=== PATIENT | female | born 1985 | race Asian ===

== ENCOUNTER 2017-01-17 09:49 | Inpatient (IN) | payer OTHER ==
[~2017-01-17] VITALS: Ht 167.6 cm; Wt 88.5 kg
[2017-01-17] MEDS ORDERED: LR 1,000 ML IV ONE ×2 (10:02→17:00)
[2017-01-17] MEDS ORDERED: CEFAZOLIN 2 GM IVPB PREMIX 50 ML IV ONE (10:15)
[2017-01-17 10:44] LABS: BILIRUBIN,URINE NEGATIVE (NEGATIVE); CLARITY/URINE CLEAR (CLEAR); COLOR,URINE YELLOW (YELLOW); GLUCOSE,URINE NEGATIVE (NEGATIVE); KETONES,URINE NEGATIVE (NEGATIVE); LEUKOCYTE ESTERASE ,URINE TRACE (NEGATIVE); NITRITE, URINE NEGATIVE (NEGATIVE); PROTEIN URINE 2+ (NEGATIVE); UROBILINOGEN,URINE 0.2 (0.2-1.0)
[2017-01-17 10:45] LABS: BLOOD, URINE TRACE (NEGATIVE)
[2017-01-17 10:54] LABS: HEMATOCRIT 44.3 % (36-48); HEMOGLOBIN 14.9 g/dL (12.0-16.0); MEAN CORPUSCULAR HEMOGLOBIN 33 pg (27-31); MEAN CORPUSCULAR HGB CONC 34 % (32-36); MEAN CORPUSCULAR VOLUME 98 fL (79.0-98.0); PLATELET COUNT (AUTO) 102 K/uL (130-430); RED BLOOD CELL COUNT(AUTO) 4.53 MIL/uL (4.2-6.2); WHITE BLOOD COUNT (AUTO) 7.8 K/uL (4.8-10.8)
[2017-01-17 10:57] LABS: BACTERIA,URINE MODERATE /HPF (None Seen); MUCUS,URINE None Seen /LPF (None Seen); RBC,URINE 0-3 /HPF (0-3)
[2017-01-17] MEDS ORDERED: NALOXONE HCL 1 MG in NACL 0.9% 1,000 ML IV PRN ×4 (11:04)
[2017-01-17] MEDS ORDERED: LR 1,000 ML IV SCH ×2 (11:04→12:56)
[2017-01-17 11:06] LABS: BASOPHILS % (MANUAL) 0 % (0-2); EOSINOPHILS % (MANUAL) 1 % (0-7); LYMPHOCYTES % (MANUAL) 38 % (20-46); MONOCYTES % (MANUAL) 7 % (0-11)
[2017-01-17] MEDS ORDERED: HYDROmorphone 2 MG/ML VIAL IVP PRN ×2 (11:15)
[2017-01-17] MEDS ORDERED: HYDROmorphone 1 MG INJ. 1 MG/ML AMPUL IVP PRN (11:15)
[2017-01-17] MEDS ORDERED: KETOROLAC TROMETHAMINE 60 MG/2 ML VIAL IM PRN (11:15)
[2017-01-17] MEDS ORDERED: DIPHENHYDRAMINE HCL 50 MG CAPSULE PO PRN (11:15)
[2017-01-17] MEDS ORDERED: ONDANSETRON HCL 4 MG/2 ML VIAL IVP PRN (11:15)
[2017-01-17] MEDS ORDERED: NALOXONE HCL 0.4 MG/ML AMP (NARCAN) IVP PRN ×3 (11:15)
[2017-01-17] MEDS ORDERED: DIPHENHYDRAMINE INJ 50 MG/ML VIAL IVP PRN (11:15)
[2017-01-17] MEDS ORDERED: MEPERIDINE HCL/PF 25 MG/ML DISP.SYRIN IVP PRN ×3 (11:15→18:15)
[2017-01-17] MEDS ORDERED: MORPHINE SULFATE 10MG/10ML PF AMP EP ONE (12:00)
[2017-01-17] MEDS ORDERED: LR 1,000 ML IV.SOLN IV ONE (12:00)
[2017-01-17] MEDS ORDERED: ONDANSETRON HCL 4 MG/2 ML VIAL IVP ONE (12:00)
[2017-01-17] MEDS ORDERED: NS IRRIG SOLN 1000 ML IR ONE (12:00)
[2017-01-17] MEDS ORDERED: OXYTOCIN 10 UNIT/ML VIAL IV ONE (12:00)
[2017-01-17] MEDS ORDERED: LANOLIN 7 GM OINT. TP PRN (13:00)
[2017-01-17] MEDS ORDERED: RHO(D) IMMUNE GLOBULIN/MALTOSE 1500 UNITS/1.3 ML (WINHRO) IM PRN (13:00)
[2017-01-17] MEDS ORDERED: BISACODYL 10 MG/SUPPOSITORY RC PRN (13:00)
[2017-01-17] MEDS ORDERED: MEPERIDINE HCL/PF 50 MG/ML AMP IVP PRN (13:00)
[2017-01-17] MEDS ORDERED: ANUSOL 1 EA SUPP.RECT (PREPARATION H) RC PRN (13:00)
[2017-01-17] MEDS ORDERED: MEASLES,MUMPS&RUBELLA VACC/PF 12500 UNIT/0.5 ML VIAL SUBQ PRN (13:00)
[2017-01-17 13:50] VITALS: BP_SYST 121
[2017-01-17] MEDS ORDERED: OXYTOCIN/NORMAL SALINE 1,000 ML IV ONE (16:12)
[2017-01-17 16:37] LABS: BASOPHILS # (AUTO) 0.1 K/uL (0.0-0.2); BASOPHILS % (AUTO) 0.8 % (0.0-2.0); EOSINOPHILS % (AUTO) 0.2 % (0.0-4.0); HEMATOCRIT 37.4 % (36-48); HEMOGLOBIN 12.8 g/dL (12.0-16.0); LYMPHOCYTES # (AUTO) 2.8 K/uL (1.0-5.5); LYMPHOCYTES % (AUTO) 24.2 % (20.5-51.5); MEAN CORPUSCULAR HEMOGLOBIN 33 pg (27-31); MEAN CORPUSCULAR HGB CONC 34 % (32-36); MEAN CORPUSCULAR VOLUME 97 fL (79.0-98.0); MONOCYTES # (AUTO) 0.5 K/uL (0.0-1.0); MONOCYTES % (AUTO) 4.7 % (1.7-9.3); NEUTROPHILS # (AUTO) 8.1 K/uL (1.8-7.7); NEUTROPHILS % (AUTO) 70.1 % (40.0-70.0); RED BLOOD CELL COUNT(AUTO) 3.86 MIL/uL (4.2-6.2); RED CELL DISTRIBUTION WIDTH 12.8 % (9.0-15.0); WHITE BLOOD COUNT (AUTO) 11.5 K/uL (4.8-10.8)
[2017-01-17] MEDS ORDERED: METHYLERGONOVINE MALEATE 0.2 MG/ML AMP IM ONE (17:00)
[2017-01-17 17:01] LABS: PLATELET COUNT (AUTO) 86 K/uL (130-430)
[2017-01-17] MEDS ORDERED: METHYLERGONOVINE MALEATE 0.2 MG/ML AMP ONE (17:03)
[2017-01-17 18:16] LABS: ALBUMIN 2.3 g/dL (3.4-4.8); CALCIUM 8.6 mg/dL (8.4-11.0); CREATININE 0.5 mg/dL (0.55-1.30); TOTAL BILIRUBIN 0.2 mg/dL (0.0-1.0); TOTAL PROTEIN, SERUM 5.3 g/dL (6.4-8.3); URIC ACID 6.7 mg/dL (2.4-7.0)
[2017-01-17] MEDS: CEFAZOLIN 1 GM IVPB PREMIX 50 ML IV SCH (18:32)
[2017-01-17] MEDS ORDERED: TEMAZEPAM 15 MG CAPSULE PO PRN (21:00)
[2017-01-18] MEDS: CEFAZOLIN 1 GM IVPB PREMIX 50 ML IV SCH ×2 (00:31→06:08)
[2017-01-18 07:14] LABS: HEMOGLOBIN 10.9 g/dL (12.0-16.0); MONOCYTES # (AUTO) 0.6 K/uL (0.0-1.0)
[2017-01-18 07:20] LABS: BASOPHILS % (AUTO) 0.3 % (0.0-2.0); EOSINOPHILS % (AUTO) 0.2 % (0.0-4.0); LYMPHOCYTES % (AUTO) 20.9 % (20.5-51.5); MEAN CORPUSCULAR HEMOGLOBIN 33 pg (27-31); MEAN CORPUSCULAR HGB CONC 34 % (32-36); MEAN CORPUSCULAR VOLUME 98 fL (79.0-98.0); MONOCYTES % (AUTO) 5.9 % (1.7-9.3); NEUTROPHILS # (AUTO) 7.1 K/uL (1.8-7.7); NEUTROPHILS % (AUTO) 72.7 % (40.0-70.0); RED BLOOD CELL COUNT(AUTO) 3.28 MIL/uL (4.2-6.2); WHITE BLOOD COUNT (AUTO) 9.7 K/uL (4.8-10.8)
[2017-01-18 07:39] LABS: PLATELET COUNT (AUTO) 71 K/uL (130-430)
[2017-01-18] MEDS: HYDROcodone/ACETAMIN 5-325 MG TAB (NORCO/ VICODIN) PO PRN ×2 (08:27→15:07)
[2017-01-18] MEDS: IBUPROFEN 800 MG TABLET PO PRN ×2 (11:44→17:49)
[2017-01-18 15:42] LABS: BASOPHILS % (AUTO) 0.3 % (0.0-2.0); EOSINOPHILS % (AUTO) 0.3 % (0.0-4.0); HEMATOCRIT 33.6 % (36-48); HEMOGLOBIN 11.4 g/dL (12.0-16.0); LYMPHOCYTES # (AUTO) 1.4 K/uL (1.0-5.5); LYMPHOCYTES % (AUTO) 15.8 % (20.5-51.5); MEAN CORPUSCULAR HEMOGLOBIN 33 pg (27-31); MEAN CORPUSCULAR HGB CONC 34 % (32-36); MEAN CORPUSCULAR VOLUME 98 fL (79.0-98.0); MONOCYTES # (AUTO) 0.4 K/uL (0.0-1.0); MONOCYTES % (AUTO) 4.8 % (1.7-9.3); NEUTROPHILS # (AUTO) 7.2 K/uL (1.8-7.7); NEUTROPHILS % (AUTO) 78.8 % (40.0-70.0); RED BLOOD CELL COUNT(AUTO) 3.44 MIL/uL (4.2-6.2); RED CELL DISTRIBUTION WIDTH 12.8 % (9.0-15.0)
[2017-01-18 15:58] LABS: PLATELET COUNT (AUTO) 100 K/uL (130-430)
[2017-01-18] MEDS: DOCUSATE SODIUM 100 MG CAPSULE PO PRN (17:49)
[2017-01-18] MEDS: SIMETHICONE 80 MG TAB.CHEW PO PRN (17:50)
[2017-01-19] MEDS: IBUPROFEN 800 MG TABLET PO PRN ×4 (00:10→18:25)
[2017-01-19 06:32] LABS: BASOPHILS % (AUTO) 0.2 % (0.0-2.0); EOSINOPHILS # (AUTO) 0.2 K/uL (0.0-0.4); EOSINOPHILS % (AUTO) 2.1 % (0.0-4.0); HEMATOCRIT 32.6 % (36-48); HEMOGLOBIN 10.8 g/dL (12.0-16.0); LYMPHOCYTES # (AUTO) 1.9 K/uL (1.0-5.5); LYMPHOCYTES % (AUTO) 22.9 % (20.5-51.5); MEAN CORPUSCULAR HEMOGLOBIN 33 pg (27-31); MEAN CORPUSCULAR HGB CONC 33 % (32-36); MEAN CORPUSCULAR VOLUME 98 fL (79.0-98.0); MONOCYTES # (AUTO) 0.6 K/uL (0.0-1.0); MONOCYTES % (AUTO) 6.7 % (1.7-9.3); NEUTROPHILS # (AUTO) 5.7 K/uL (1.8-7.7); NEUTROPHILS % (AUTO) 68.1 % (40.0-70.0); RED BLOOD CELL COUNT(AUTO) 3.31 MIL/uL (4.2-6.2); RED CELL DISTRIBUTION WIDTH 12.8 % (9.0-15.0); WHITE BLOOD COUNT (AUTO) 8.4 K/uL (4.8-10.8)
[2017-01-19 07:36] LABS: INR 0.8 (0.8-1.2); PROTHROMBIN TIME 8.8 SECS (9.5-12.5)
[2017-01-19 07:47] LABS: PLATELET COUNT (AUTO) 87 K/uL (130-430)
[2017-01-19] MEDS: HYDROcodone/ACETAMIN 5-325 MG TAB (NORCO/ VICODIN) PO PRN (21:41)
[2017-01-19] MEDS: DOCUSATE SODIUM 100 MG CAPSULE PO PRN (21:41)
[2017-01-19] MEDS: SIMETHICONE 80 MG TAB.CHEW PO PRN (21:41)
[2017-01-19] MEDS: SENNOSIDES/DOCUSATE SODIUM 1 TAB TABLET(SENOKOT-S) PO PRN (21:42)
[2017-01-20] MEDS: IBUPROFEN 800 MG TABLET PO PRN (08:47)
[2017-01-20] MEDS: SIMETHICONE 80 MG TAB.CHEW PO PRN (11:30)
[2017-01-20] MEDS: SENNOSIDES/DOCUSATE SODIUM 1 TAB TABLET(SENOKOT-S) PO PRN (11:31)
[2017-01-20] MEDS: HYDROcodone/ACETAMIN 5-325 MG TAB (NORCO/ VICODIN) PO PRN (11:31)
[2017-01-20] MEDS: DOCUSATE SODIUM 100 MG CAPSULE PO PRN (11:31)
== END 2017-01-20 11:45 | disposition home or self-care (01) | DRG 765 ==
LOC: SPU 09:49
PROVIDERS: ADMIT Obstetrics & Gynecology; ATTEND Obstetrics & Gynecology
PROC: 10D00Z1 Extraction of Products of Conception, Low, Open Approach (ICD-10-PCS; principal; 2017-01-17 12:00)
DX: O36.63X0 Maternal care for excessive fetal growth, third trimester, not applicable or unspecified (principal); D69.3 Immune thrombocytopenic purpura; O99.12 Other diseases of the blood and blood-forming organs and certain disorders involving the immune mechanism complicating childbirth; O41.03X0 Oligohydramnios, third trimester, not applicable or unspecified; Z37.0 Single live birth; Z3A.40 40 weeks gestation of pregnancy; O99.214 Obesity complicating childbirth; E66.01 Morbid (severe) obesity due to excess calories; Z68.31 Body mass index [BMI] 31.0-31.9, adult
CPT/HCPCS: 36415; 76705; 80053; 81000-TC; 83615-TC; 84550-TC; 85007; 85025; 85027; 85610-TC; 85730-TC; 86038; 86592; 86886; 86900; 86901; 87086; 94760; J0690; J2175; J2210; J2274; J2405; J2590; J7120

== ENCOUNTER 2018-02-12 17:37 | Outpatient (CLI) | payer OTHER | END 2018-02-12 20:26 | disposition home or self-care (01) | LOC: SRD 17:37 | PROVIDERS: ATTEND Internal Medicine | DX: M25.561 Pain in right knee (principal); M25.562 Pain in left knee ==

== ENCOUNTER 2018-02-26 16:32 | Outpatient (CLI) | payer OTHER | END 2018-02-26 20:00 | disposition home or self-care (01) | LOC: SLB 16:32 → SRD 20:00 | DX: M79.672 Pain in left foot (principal) ==

== ENCOUNTER 2022-09-04 16:35 | Emergency (ER) | payer OTHER ==
[~2022-09-04] VITALS: Ht 170.2 cm; Wt 78.9 kg
[2022-09-04 17:12] VITALS: BP_SYST 127
[2022-09-04] MEDS ORDERED: ONDANSETRON 4 MG ODT TAB PO ONE (17:15)
--- NOTE | 2022-09-04 17:22 | NUR ---
Patient to ER bed 3 to gown for evaluation. Side rails up. Report given to CHANTAL LLOYD.
--- NOTE | 2022-09-04 17:30 | NUR ---
PT BIB SELF AWAKE AND ALERT AOX4, NO SOB OR DISTRESS. PT C/O N/V AND DIZZYNESS X4 DAYS. PT STATES SHE IS 7 WEEKS AND TRYING TO HAVE AN BY MEDICATION. PT DENIES BLEEDING AND PAIN.
--- NOTE | 2022-09-04 17:35 | NUR ---
MD DR APPLE AT BEDSIDE
[2022-09-04 17:48] LABS: BASOPHILS % (AUTO) 0.6 % (0.0-2.0); EOSINOPHILS # (AUTO) 0.1 K/uL (0.0-0.4); EOSINOPHILS % (AUTO) 2.5 % (0.0-4.0); HEMATOCRIT 38.2 % (36-48); HEMOGLOBIN 13.3 g/dL (12.0-16.0); LYMPHOCYTES # (AUTO) 2.2 K/uL (1.0-5.5); LYMPHOCYTES % (AUTO) 41.7 % (20.5-51.5); MEAN CORPUSCULAR HEMOGLOBIN 32 pg (27-31); MEAN CORPUSCULAR HGB CONC 35 % (32-36); MEAN CORPUSCULAR VOLUME 92 fL (79.0-98.0); MONOCYTES # (AUTO) 0.6 K/uL (0.0-1.0); MONOCYTES % (AUTO) 10.9 % (1.7-9.3); NEUTROPHILS # (AUTO) 2.3 K/uL (1.8-7.7); NEUTROPHILS % (AUTO) 44.3 % (40.0-70.0); PLATELET COUNT (AUTO) 143 K/uL (130-430); RED BLOOD CELL COUNT(AUTO) 4.17 MIL/uL (4.2-6.2); RED CELL DISTRIBUTION WIDTH 13.5 % (9.0-15.0); WHITE BLOOD COUNT (AUTO) 5.2 K/uL (4.8-10.8)
--- NOTE | 2022-09-04 19:43 | NUR ---
REPORT GIVEN TO TIP CORNEJO. PT STABLE. VSS
[2022-09-04 20:14] VITALS: BP_SYST 122
--- NOTE | 2022-09-04 20:14 | NUR ---
Patient given written and verbal discharge instructions and verbalizes understanding. ER MD discussed with patient the results and treatment provided. Patient in stable condition. ID arm band removed. NO RX GIVEN. Patient educated on pain management and to follow up with [facility] DR. STERN TOMORROW AM. Pain Scale 0/10 Opportunity for questions provided and answered.
== END 2022-09-04 20:14 | disposition home or self-care (01) ==
LOC: SED 16:35
DX: O00.01 Abdominal pregnancy with intrauterine pregnancy (principal); Z3A.01 Less than 8 weeks gestation of pregnancy; Z79.899 Other long term (current) drug therapy
CPT/HCPCS: 99284; 76801; 84702; 85025; 36415; 76817; Q0162